=== PATIENT | male | born 1960 | race Caucasian/White ===

== ENCOUNTER 2017-10-12 09:05 | Day surgery (SDC) | payer BC ==
[~2017-10-12] VITALS: Ht 177.8 cm; Wt 90.9 kg
[2017-10-12 10:01] LABS: International Normalized Ratio 1.01; Prothrombin Time Results 10.4 Sec (9.7-11.5)
[2017-10-12] MEDS ORDERED: ALLO300 PO (13:40)
[2017-10-12] MEDS ORDERED: Depo-Testos200 MG/ML IM (13:40)
[2017-10-12] MEDS ORDERED: LEVSOD125 PO (13:40)
== END 2017-10-12 22:52 | disposition home or self-care (01) ==
LOC: MHTC 09:05
PROVIDERS: Internal Medicine Interventional Cardiology
DX: I83.892 Varicose veins of left lower extremity with other complications (principal); E03.9 Hypothyroidism, unspecified; Z87.891 Personal history of nicotine dependence
CPT/HCPCS: 36415; 36465; 36475; 85610; 99152; 99153; C1769; C1888; C1894; J1644; J2250; J3010; J7040

== ENCOUNTER → 2021-01-15 | Outpatient (CLI) | payer BC ==
[~2021-01-15] MED LIST: ALLO300 PO; Depo-Testos200 MG/ML IM; LEVSOD125 PO
== END | disposition home or self-care (01) ==
LOC: LAB 10:35 → LAB SHORT 10:35
PROVIDERS: Internal Medicine Hematology & Oncology
DX: D80.1 Nonfamilial hypogammaglobulinemia (principal)
CPT/HCPCS: 81050; 84156